=== PATIENT | female | born 1975 | race Caucasian/White ===

== ENCOUNTER → 2016-09-17 | Outpatient (CLI) | payer OTHER ==
--- NOTE | 2016-09-18 02:46 | REP ---
Clinical: Cervicalgia. Technique: AP, lateral, flexion/extension, bilateral oblique, and open-mouth views. Findings: Straightening of normal lordosis may be secondary to chronic pain/spasm. Alignment is maintained. There is no evidence for acute fracture / compression injury or subluxation. No significant degenerative changes are appreciated. Oblique views demonstrate patent neural foramen. Open mouth view demonstrates normal C1-C2 articulation and odontoid process. Impression: Straightening to the normal cervical lordosis. Otherwise relatively normal, age-appropriate examination. Signed by Solitario Foy MD 09/18/2016 02:38 A
== END ==
LOC: M LRY 10:49
PROVIDERS: ATTEND Physician Assistant
DX: M54.2 Cervicalgia (principal)
CPT/HCPCS: 72052; G0463

== ENCOUNTER → 2016-10-29 | Outpatient (CLI) | payer OTHER ==
--- NOTE | 2016-10-29 14:15 | REP ---
MRI CERVICAL SPINE WITHOUT CONTRAST: 10/29/2016 CLINICAL HISTORY: Neck pain after chiropractic neck adjustment. Remote history of white matter lesion in the brain reported by the patient on MRI 16 years ago. COMPARISON: No prior MRI studies available. Prior x-ray 09/17/2016. TECHNIQUE: Sagittal T1, T2 and STIR images with axial T1 and T2 sequences provided. There is loss of the normal cervical lordosis with straightening of the spine as on the previous x-ray. The disc space heights are maintained. There is loss of disc water signal from C2-3 through C5-6, less at the levels below. Vertebral body heights and marrow signal are normal throughout and the dens intact. Craniocervical junction shows ample subarachnoid space and no cerebellar tonsillar ectopia. At C2-3, C3-4 and C4-5, there is no disc bulge herniation and no spinal or foraminal stenosis. At C5-6, there is minimal disc bulge is without disc herniation, spinal or foraminal stenosis. At C6-7 and C7-T1, there is no disc bulge or herniation and no spinal or foraminal stenosis. The upper thoracic levels show no significant abnormality. The cervical cord shows no syrinx, atrophy, mass or other intrinsic cord signal abnormality. IMPRESSION: 1. There is no significant degenerative disc change, spinal or foraminal stenosis, disc herniation or compression deformity at any level in the cervical spine. 2. There is no intrinsic cord signal abnormality, syrinx, atrophy or mass. No white matter lesions on the T2 or STIR images. Signed by Alex Nolan MD 10/29/2016 05:15 P
--- NOTE | 2016-10-29 16:52 | REP ---
MRI BRAIN WITHOUT CONTRAST: 10/29/2016. Clinical history: Headaches and dizziness. Technique: Sagittal T1 with axial T1-T2 FLAIR gradient-echo and diffusion-weighted images with ADC mapping sequence. Findings: Ventricles are midline and symmetric and without dilatation or displacement. Basal ganglia appear symmetric and grossly intact. The strong-white junction differentiation was maintained well throughout. There are no T2 or FLAIR hyperintense white matter foci in either hemisphere of significance. Cortical stripe is preserved. There is no extra-axial fluid collection. There is no vascular territory infarct, hemorrhage, mass or mass effect. The gradient echo sequence shows no evidence of parenchymal hemorrhage. Brainstem and cerebellum are grossly intact. The basal cisterns are intact. Seventh/eighth cranial nerve complexes are symmetric and normal and the sinuses and mastoids are clear. Corpus callosum, optic chiasm and pituitary were normal. The diffusion weighted images and ADC mapping sequences are without evidence of acute ischemia. Impression: 1. Normal MRI of the brain. There is no intracranial hemorrhage, mass, infarct or edema. 2. No white matter tract abnormalities in either hemisphere, brainstem or cerebellum. Signed by Alex Nolan MD 10/29/2016 05:19 P
== END ==
LOC: M RAD 12:41
PROVIDERS: ATTEND Physician Assistant
DX: G93.9 Disorder of brain, unspecified (principal); M54.2 Cervicalgia

== ENCOUNTER → 2016-11-21 | Outpatient (CLI) | payer OTHER ==
--- NOTE | 2016-11-21 10:33 | REP ---
PELVIC ULTRASOUND: Real-time sonographic evaluation of pelvis performed utilizing transabdominal and endovaginal technique. Urinary bladder measures 6.2 x 7.9 x 10.7 cm. Uterus measures 8.7 x 5.2 x 6.7 cm. Endometrial thickness is 12 mm. There is no endometrial fluid collection. Right ovary is normal in size and echotexture, measuring 2.4 x 1.2 x 1.6 cm. Left ovary is somewhat enlarged measuring 4.0 x 3.0 x 3.7 cm. Complex cystic structure in the left ovary contains multiple septations measuring 3.5 x 2.4 x 3.2 cm. There is no other evidence of adnexal mass or free fluid. There is blood flow seen in each ovary with duplex Doppler evaluation, with no torsion. IMPRESSION: Complex cyst, left ovary. Recommend followup ultrasound in 2 months. Signed by Byron Orta MD 11/21/2016 04:50 P
== END ==
LOC: M LRY 08:35
PROVIDERS: ATTEND Nurse Practitioner Adult Health
DX: N92.1 Excessive and frequent menstruation with irregular cycle (principal); N83.202 Unspecified ovarian cyst, left side

== ENCOUNTER → 2017-01-07 | Outpatient (REF) | payer OTHER | LOC: M SFHCLERA 20:30 | PROVIDERS: ATTEND Physician Assistant | DX: J02.9 Acute pharyngitis, unspecified (principal) ==

== ENCOUNTER → 2017-06-10 | Outpatient (CLI) | payer OTHER | LOC: M LRY 14:58 | PROVIDERS: ATTEND Ophthalmology | DX: H16.223 Keratoconjunctivitis sicca, not specified as Sjogren's, bilateral (principal) ==

== ENCOUNTER → 2017-07-07 | Outpatient (CLI) | payer OTHER ==
--- NOTE | 2017-07-07 16:43 | REP ---
Clinical: Left-sided ovarian cyst. Comparison: 11/21/2016. Technique: Transabdominal pelvic ultrasound followed by transvaginal examination for better evaluation of the endometrium and adnexa with color Doppler evaluation of the ovaries. Findings: Bladder is unremarkable and measures 9.8 x 10.9 x 11.8 cm Normal anteverted uterus measures 8.8 x 4.5 x 6.4 cm . The endometrial complex measures 10.3 thickness. No discrete uterine or endometrial abnormalities are appreciated. Bilateral ovaries are normal in appearance and vascularity without evidence for torsion. Right ovary measures 3.1 x 2.1 x 2.1 cm with 1.8 cm dominant follicle ; R I = 0.52 . Left ovary measures 2.6 x 2.1 x 2.5 cm and the previously noted ovarian cyst has resolved. ; R I = (venous flow detected). No pelvic fluid or adnexal mass lesion. Impression: 1. Essentially normal pelvic ultrasound. 2. Previously identified left ovarian cyst has resolved. Signed by Solitario Foy MD 07/07/2017 04:34 P
== END ==
LOC: M LRY 14:05
PROVIDERS: ATTEND Nurse Practitioner Adult Health
DX: N83.202 Unspecified ovarian cyst, left side (principal)